=== PATIENT | female | born 1930 | race Caucasian/White ===

== ENCOUNTER 2016-10-22 10:43 | Observation (INO) | payer OTHER ==
[~2016-10-22] VITALS: Ht 162.6 cm; Wt 66.9 kg
[~2016-10-22 10:43] MED LIST: ACTONEL35 MG PO; ACTOS45 MG PO; AMLODIPINE BESYL5 MG PO; ASPIRIN81 M1 PO; Ambien PO; BUMEX1 MG PO; BUMEX2 MG PO; CALCIUM MAGNES1 EAC1 PO; CALCIUM WITH M1 EAC2 PO; CEFTIN250 MG PO; CENTRUM SILVER1 EAC3 PO; COUMADIN1 MG PO; COUMADIN2 MG PO; COUMADIN4 MG PO; Ceftin PO; DETROL LA4 MG PO; DIGOXIN PO; DIGOXIN125 MCG PO; DIGOXIN250 MCG PO; DITROPAN5 MG; DITROPAN5 MG PO; DUONEB3 ML IH; EXFORGE HCT 101 EAC2 PO; FOSAMAX70 MG PO; FUROSEMIDE40 MG PO; Feosol PO; GLUCOPHAGE1000 MG PO; ILOTYCIN1 GM BOTH EYES; JANUVIA100 MG PO; JANUVIA25 M1 PO; LASIX40 MG PO; LEVOTHYROXINE100 MCG PO; LEVOTHYROXINE125 MCG PO; LO-DOSE ASPIRIN81 M1 PO; LOPRESSOR12.5 MG PO; LOPRESSOR50 MG PO; Lanoxin,Digitek PO; METHYLPREDNISOL32 MG; METOPROLOL TART50 MG PO; MULTIPLE VITAM1 EAC3 PO; NITROSTAT,NITR0.4 M1; NITROSTAT0.4 MG SL; PIOGLITAZONE HC15 MG PO; SIMVASTATIN PO; SIMVASTATIN20 MG PO; Sodium Chloride PO; VITAMIN C500 M1 PO; ZOCOR20 MG PO
[2016-10-22 11:28] LABS: HEMATOCRIT 38.7 % (36.0-46.0); MCH 30.5 PG (29.0-34.0); MCHC 33.3 G/DL (30.0-36.0); MCV 91.5 FL (83-99); MEAN PLAT.VOLUME 10.2 uM^3 (9.5-12.4); PLATELET COUNT 139 K/uL (156-360); RBC DIS.WIDTH-CV 16.1 % (11.8-14.6); RBC DIS.WIDTH-SD 51.6 % (39-53); RED BLOOD COUNT 4.23 M/uL (3.80-5.20); WHITE BLOOD COUNT 6.3 K/uL (4.1-10.2)
[2016-10-22 11:41] LABS: BASOPHIL COUNT 0.1 K/uL (0-0.1); EOSINOPHIL COUNT 0.2 K/uL (0-0.3); IMMATURE GRANULOCYTE (%) 0.3 % (0.0-0.7); IMMATURE GRANULOCYTE COUNT 0.2 K/uL; LYMPHOCYTE COUNT 0.5 K/uL (1.0-2.8); MONOCYTE (%) 10.7 % (3-12); MONOCYTE COUNT 0.7 K/uL (0-0.8); NEUTROPHIL (%) 76.6 % (45-76); NEUTROPHIL COUNT 4.8 K/uL (1.8-6.4)
[2016-10-22 11:42] LABS: CHLORIDE 99 mEq/L (99-109); POTASSIUM 4.4 mEq/L (3.7-5.4); SODIUM 135 mEq/L (136-147)
[2016-10-22 11:44] LABS: D-DIMER ELISA 0.57 mg/L FEU (< 0.57); GLUCOSE 221 mg/dL (70-99)
[2016-10-22 11:45] LABS: ANION GAP 13 MEQ/L (2-14)
[2016-10-22 11:46] LABS: TOTAL BILIRUBIN 1.2 mg/dL (0.0-1.0)
[2016-10-22 11:48] LABS: ALKALINE PHOSPHATASE 100 IU/L (3-129); GFR ESTIMATE (CALCULATED) 19 mL/min/
[2016-10-22 11:49] LABS: UREA NITROGEN (BUN) 57 mg/dL (9-23)
[2016-10-22 11:53] LABS: TROP-I INTERPRETATION NEGATIVE; TROPONIN-I 0.02 ng/mL (0.0-0.30)
[2016-10-22] MEDS ORDERED: COUMADIN1 MG PO (13:19)
[2016-10-22] MEDS ORDERED: CRANBERRY TABL1 EACH PO (13:20)
[2016-10-22] MEDS ORDERED: TRADJENTA5 MG PO (13:20)
[2016-10-22] MEDS ORDERED: INVOKANA100 MG PO (13:20)
[2016-10-22] MEDS ORDERED: ASPIRIN325 MG PO (13:21)
[2016-10-22] MEDS ORDERED: NEOSPORIN + P28.3 GM TP (13:22)
[2016-10-22 15:56] LABS: PROTHROMBIN TIME 20.3 (9.2-11.2)
[2016-10-22 16:19] VITALS: BP 102/59
[2016-10-22 16:22] LABS: POINT-OF-CARE METER ID UU13113831
[2016-10-22 19:47] VITALS: BP 106/57
[2016-10-22 21:27] LABS: POINT-OF-CARE METER ID UU13113700
[2016-10-23 01:13] VITALS: BP 103/55
[2016-10-23 05:06] VITALS: BP 111/58
[2016-10-23 06:49] LABS: INTER. NORMALIZED RATIO 1.7; PROTHROMBIN TIME 18.1 (9.2-11.2)
[2016-10-23 06:56] LABS: ANION GAP 13 MEQ/L (2-14); CHLORIDE 98 MEQ/L (99-109); GFR ESTIMATE (CALCULATED) 21 mL/min/; GLUCOSE 161 mg/dL (70-99); POTASSIUM 4.1 MEQ/L (3.7-5.4); SAMPLE HEMOLYSIS CHECK 0; SAMPLE ICTERIC CHECK 0; SAMPLE LIPEMIA CHECK 0; SODIUM 135 MEQ/L (136-147); UREA NITROGEN (BUN) 59 mg/dL (9-23)
[2016-10-23 07:28] VITALS: BP 110/64
[2016-10-23 09:40] LABS: TROP-I INTERPRETATION NEGATIVE; TROPONIN-I 0.07 ng/mL (0.0-0.30)
[2016-10-23 12:27] VITALS: BP 110/55
[2016-10-23 12:32] LABS: POINT-OF-CARE METER ID UU14162513
[2016-10-23] MEDS ORDERED: KEFLEX250 MG PO (12:35)
== END 2016-10-23 15:36 | disposition home or self-care (01) ==
LOC: EME 10:43 → EDOF 14:03 → 5WEST 14:03 → EDOF 14:27 → 5WEST 15:49
PROVIDERS: Emergency Medicine; Hospitalist; Internal Medicine; Physician Assistant Medical
DX: R07.9 Chest pain, unspecified (principal); R06.02 Shortness of breath; L03.116 Cellulitis of left lower limb; I25.5 Ischemic cardiomyopathy; I25.10 Atherosclerotic heart disease of native coronary artery without angina pectoris; Z95.1 Presence of aortocoronary bypass graft; I48.1 Persistent atrial fibrillation; I12.9 Hypertensive chronic kidney disease with stage 1 through stage 4 chronic kidney disease, or unspecified chronic kidney disease; E78.5 Hyperlipidemia, unspecified; Z79.01 Long term (current) use of anticoagulants; Z79.899 Other long term (current) drug therapy; E11.22 Type 2 diabetes mellitus with diabetic chronic kidney disease; I35.0 Nonrheumatic aortic (valve) stenosis; N18.9 Chronic kidney disease, unspecified
CPT/HCPCS: 71010; 73502; 80048; 80053; 82948; 83880; 84484; 85025; 85379; 85610; 93005; 93971; 99281; 99285; G0378; J1815; J1940

== ENCOUNTER 2016-12-07 22:42 | Emergency (ER) | payer OTHER ==
[~2016-12-07] VITALS: Ht 162.6 cm; Wt 68.0 kg
[~2016-12-07 22:42] MED LIST changes: +ASPIRIN325 MG PO; +CRANBERRY TABL1 EACH PO; +INVOKANA100 MG PO; +KEFLEX250 MG PO; +NEOSPORIN + P28.3 GM TP; +TRADJENTA5 MG PO
[2016-12-08] MEDS ORDERED: LEVO-T125 MCG PO (01:18)
[2016-12-08] MEDS ORDERED: NITROSTAT0.4 MG SL (01:19)
[2016-12-08] MEDS ORDERED: KEFLEX250 MG PO (01:19)
[2016-12-08] MEDS ORDERED: ZOCOR20 MG PO (01:19)
[2016-12-08] MEDS ORDERED: CENTRUM SILVER1 EAC3 PO (01:19)
[2016-12-08] MEDS ORDERED: BUMEX2 MG PO (01:20)
[2016-12-08] MEDS ORDERED: LOPRESSOR50 MG PO (01:20)
[2016-12-08] MEDS ORDERED: C COMPLEX500 MG PO (01:20)
[2016-12-08] MEDS ORDERED: COUMADIN1 MG PO (01:20)
[2016-12-08] MEDS ORDERED: INVOKANA100 MG PO (01:20)
[2016-12-08] MEDS ORDERED: TRADJENTA5 MG PO (01:21)
[2016-12-08] MEDS ORDERED: CRANBERRY TABL1 EACH PO (01:21)
[2016-12-08] MEDS ORDERED: SANTYL30 GM TP (01:24)
[2016-12-08 01:48] VITALS: BP 124/80
== END 2016-12-08 01:53 | disposition home or self-care (01) ==
LOC: EME 22:42
DX: L97.829 Non-pressure chronic ulcer of other part of left lower leg with unspecified severity (principal); M79.672 Pain in left foot; E11.9 Type 2 diabetes mellitus without complications; I10 Essential (primary) hypertension; I48.91 Unspecified atrial fibrillation; Z79.01 Long term (current) use of anticoagulants; Z79.82 Long term (current) use of aspirin; Z95.1 Presence of aortocoronary bypass graft; Z95.5 Presence of coronary angioplasty implant and graft
CPT/HCPCS: 99281; 99284

== ENCOUNTER 2018-01-11 16:28 | Emergency (ER) | payer OTHER ==
[~2018-01-11] VITALS: Ht 162.6 cm; Wt 65.0 kg
[~2018-01-11 16:28] MED LIST changes: +C COMPLEX500 MG PO; +LEVO-T125 MCG PO; +SANTYL30 GM TP
[2018-01-11 17:13] LABS: HEMATOCRIT 40.4 % (36.0-46.0); HEMOGLOBIN 13.5 G/DL (11.9-15.5); MCH 30.5 PG (29.0-34.0); MCHC 33.4 G/DL (30.0-36.0); MCV 91.4 FL (83-99); PLATELET COUNT 145 K/uL (156-360); RBC DIS.WIDTH-CV 15.2 % (11.8-14.6); RBC DIS.WIDTH-SD 50.5 % (39-53); RED BLOOD COUNT 4.42 M/uL (3.80-5.20); WHITE BLOOD COUNT 5.8 K/uL (4.1-10.2)
[2018-01-11 17:22] LABS: CHLORIDE 94 mEq/L (99-109); POTASSIUM 4.9 mEq/L (3.7-5.4); SODIUM 135 mEq/L (136-147)
[2018-01-11 17:23] LABS: GLUCOSE 211 mg/dL (70-99)
[2018-01-11 17:27] LABS: CREATININE 2.2 mg/dL (0.6-1.3); GFR ESTIMATE (CALCULATED) 22 mL/min/
[2018-01-11 17:28] LABS: UREA NITROGEN (BUN) 63 mg/dL (9-23)
[2018-01-11] MEDS ORDERED: KEFLEX500 MG PO (20:05)
[2018-01-11] MEDS ORDERED: BACTRIM,SEPT1 TABLET PO (20:05)
[2018-01-11] MEDS ORDERED: LORTAB 5-325 M1 EACH PO (20:05)
[2018-01-11 20:36] VITALS: BP 126/75
== END 2018-01-11 20:36 | disposition home or self-care (01) ==
LOC: EME 16:28
DX: E11.622 Type 2 diabetes mellitus with other skin ulcer (principal); L97.919 Non-pressure chronic ulcer of unspecified part of right lower leg with unspecified severity; Z79.84 Long term (current) use of oral hypoglycemic drugs; L03.115 Cellulitis of right lower limb; M79.604 Pain in right leg; K59.00 Constipation, unspecified; R06.02 Shortness of breath; I51.7 Cardiomegaly; I48.91 Unspecified atrial fibrillation; I45.10 Unspecified right bundle-branch block; Z79.01 Long term (current) use of anticoagulants; I10 Essential (primary) hypertension; I50.9 Heart failure, unspecified; J44.9 Chronic obstructive pulmonary disease, unspecified; Z95.1 Presence of aortocoronary bypass graft; Z85.9 Personal history of malignant neoplasm, unspecified; Z87.442 Personal history of urinary calculi; Z90.49 Acquired absence of other specified parts of digestive tract; Z91.041 Radiographic dye allergy status
CPT/HCPCS: 71046; 74018; 80048; 82948; 85027; 93005; 99281; 99284

== ENCOUNTER 2018-03-22 12:17 | Inpatient (IN) | payer OTHER ==
[~2018-03-22] VITALS: Ht 154.9 cm; Wt 64.7 kg
[~2018-03-22 12:17] MED LIST changes: +BACTRIM,SEPT1 TABLET PO; -C COMPLEX500 MG PO; +ESTER-C 1,0001 EACH PO; +KEFLEX500 MG PO; +LORTAB 5-325 M1 EACH PO
[2018-03-22 13:25] LABS: BASOPHIL (%) 0.5 % (0-1); EOSINOPHIL (%) 1.3 % (0-5); EOSINOPHIL COUNT 0.1 K/uL (0-0.3); HEMATOCRIT 38.2 % (36.0-46.0); HEMOGLOBIN 12.6 G/DL (11.9-15.5); LYMPHOCYTE (%) 7.3 % (15-42); LYMPHOCYTE COUNT 0.6 K/uL (1.0-2.8); MCH 30.1 PG (29.0-34.0); MCV 91.2 FL (83-99); MONOCYTE (%) 11.5 % (3-12); MONOCYTE COUNT 0.9 K/uL (0-0.8); NEUTROPHIL (%) 78.4 % (45-76); NEUTROPHIL COUNT 6.1 K/uL (1.8-6.4); PLATELET COUNT 207 K/uL (156-360); RBC DIS.WIDTH-CV 17.1 % (11.8-14.6); RBC DIS.WIDTH-SD 56.5 % (39-53); RED BLOOD COUNT 4.19 M/uL (3.80-5.20); WHITE BLOOD COUNT 7.8 K/uL (4.1-10.2)
[2018-03-22 13:38] LABS: CHLORIDE 90 mEq/L (99-109); POTASSIUM 4.9 mEq/L (3.7-5.4); SODIUM 127 mEq/L (136-147)
[2018-03-22 13:39] LABS: GLUCOSE 225 mg/dL (70-99); INTER. NORMALIZED RATIO 1.9
[2018-03-22 13:42] LABS: PTT 31.8 SEC (25-37)
[2018-03-22 13:43] LABS: CREATININE 2.3 mg/dL (0.6-1.3); GFR ESTIMATE (CALCULATED) 21 mL/min/
[2018-03-22 13:44] LABS: UREA NITROGEN (BUN) 67 mg/dL (9-23)
[2018-03-22 13:48] LABS: TROP-I INTERPRETATION NEGATIVE; TROPONIN-I 0.03 ng/mL (0.0-0.30)
[2018-03-22] MEDS ORDERED: SARNA222 ML TP (17:45)
[2018-03-22] MEDS ORDERED: PIOGLITAZONE HC45 MG PO (17:45)
[2018-03-22] MEDS ORDERED: HYDROCODON-ACE1 EAC8 PO (17:47)
[2018-03-22 21:10] LABS: THYROTROPIN (TSH) 13.6 MIU/L (0.4-5.5)
[2018-03-22 21:55] VITALS: BP 113/64
[2018-03-23 04:02] VITALS: BP 118/59
[2018-03-23 05:24] LABS: BASOPHIL (%) 0.5 % (0-1); EOSINOPHIL (%) 0.5 % (0-5); HEMATOCRIT 35.4 % (36.0-46.0); HEMOGLOBIN 11.3 G/DL (11.9-15.5); IMMATURE GRANULOCYTE (%) 0.6 % (0.0-0.7); LYMPHOCYTE (%) 6.2 % (15-42); LYMPHOCYTE COUNT 0.5 K/uL (1.0-2.8); MCHC 31.9 G/DL (30.0-36.0); MCV 90.8 FL (83-99); MONOCYTE (%) 13.7 % (3-12); MONOCYTE COUNT 1.2 K/uL (0-0.8); NEUTROPHIL (%) 78.5 % (45-76); NEUTROPHIL COUNT 6.6 K/uL (1.8-6.4); PLATELET COUNT 182 K/uL (156-360); RBC DIS.WIDTH-SD 55.9 % (39-53); WHITE BLOOD COUNT 8.4 K/uL (4.1-10.2)
[2018-03-23 05:47] LABS: ALBUMIN 3.4 G/DL (3.2-4.8); ALKALINE PHOSPHATASE 142 IU/L (3-129); ALT (GPT) 11 IU/L (3-49); AST (GOT) 18 IU/L (2-34); CHLORIDE 93 MEQ/L (99-109); CREATININE 2.1 MG/DL (0.6-1.3); GFR ESTIMATE (CALCULATED) 24 mL/min/; POTASSIUM 4.6 MEQ/L (3.7-5.4); SODIUM 132 MEQ/L (136-147); TOTAL PROTEIN 6.8 G/DL (6.4-8.3); UREA NITROGEN (BUN) 67 mg/dL (9-23)
[2018-03-23 06:00] LABS: GLUCOSE 106 mg/dL (70-99)
[2018-03-23 07:45] VITALS: BP 123/66
[2018-03-23 10:38] LABS: HEMOGLOBIN A1c (GLYCOHEMOGLOB) 10.5 % (Below 5.7)
[2018-03-23 12:00] VITALS: BP 117/58
[2018-03-23 17:34] LABS: APPEARANCE CLOUDY ((CLEAR)); BILIRUBIN NEGATIVE; BLOOD NEGATIVE; COLOR YELLOW ((YELLOW)); GLUCOSE (STRIP) NEGATIVE; KETONES NEGATIVE; LEUKOCYTES LARGE; NITRITE NEGATIVE; PROTEIN (STRIP) NEGATIVE; SPECIFIC GRAVITY 1.009 (1.000-1.030); UROBILINOGEN 0.2 MG/DL (0.2-1.0)
[2018-03-23 17:40] LABS: BACTERIA RARE /HPF; EPITHELIAL CELLS 1+ /HPF; HYALINE CASTS 0-5 /LPF; MUCUS TRACE /LPF; RED BLOOD CELLS 0-5 /HPF (0-5); WHITE BLOOD CELLS 15-20 /HPF (0-5)
[2018-03-23 19:36] VITALS: BP 107/59
[2018-03-23 21:44] VITALS: BP 108/59
[2018-03-24 00:06] VITALS: BP 108/60
[2018-03-24 03:30] VITALS: BP 119/57
[2018-03-24 07:04] LABS: BASOPHIL (%) 0.3 % (0-1); EOSINOPHIL (%) 1.1 % (0-5); EOSINOPHIL COUNT 0.1 K/uL (0-0.3); HEMATOCRIT 34.9 % (36.0-46.0); HEMOGLOBIN 11.3 G/DL (11.9-15.5); IMMATURE GRANULOCYTE (%) 0.7 % (0.0-0.7); LYMPHOCYTE (%) 5.6 % (15-42); LYMPHOCYTE COUNT 0.5 K/uL (1.0-2.8); MCH 29.2 PG (29.0-34.0); MCHC 32.4 G/DL (30.0-36.0); MCV 90.2 FL (83-99); MONOCYTE (%) 9.7 % (3-12); MONOCYTE COUNT 0.9 K/uL (0-0.8); NEUTROPHIL (%) 82.6 % (45-76); NEUTROPHIL COUNT 7.6 K/uL (1.8-6.4); PLATELET COUNT 183 K/uL (156-360); RBC DIS.WIDTH-CV 17.2 % (11.8-14.6); RED BLOOD COUNT 3.87 M/uL (3.80-5.20); WHITE BLOOD COUNT 9.1 K/uL (4.1-10.2)
[2018-03-24 07:12] VITALS: BP 108/79
[2018-03-24 07:30] LABS: CHLORIDE 94 MEQ/L (99-109); CREATININE 1.9 MG/DL (0.6-1.3); GFR ESTIMATE (CALCULATED) 27 mL/min/; GLUCOSE 134 mg/dL (70-99); MAGNESIUM 2.1 mg/dl (1.3-2.7); POTASSIUM 4.1 MEQ/L (3.7-5.4); SODIUM 133 MEQ/L (136-147); UREA NITROGEN (BUN) 63 mg/dL (9-23)
[2018-03-24 10:56] VITALS: BP 115/58
[2018-03-24 16:58] VITALS: BP 115/58
[2018-03-24 19:38] VITALS: BP 112/59
[2018-03-25] VITALS (7 sets, daily range): BP systolic 117–131; BP diastolic 58–60
[2018-03-25 06:34] LABS: INTER. NORMALIZED RATIO 1.9
[2018-03-25 19:22] LABS: BASOPHIL (%) 0.6 % (0-1); BASOPHIL COUNT 0.1 K/uL (0-0.1); EOSINOPHIL (%) 1.3 % (0-5); EOSINOPHIL COUNT 0.1 K/uL (0-0.3); HEMATOCRIT 33.4 % (36.0-46.0); HEMOGLOBIN 10.7 G/DL (11.9-15.5); IMMATURE GRANULOCYTE (%) 0.5 % (0.0-0.7); LYMPHOCYTE (%) 5.4 % (15-42); LYMPHOCYTE COUNT 0.5 K/uL (1.0-2.8); MCH 29.2 PG (29.0-34.0); MCV 91.3 FL (83-99); MONOCYTE COUNT 0.8 K/uL (0-0.8); NEUTROPHIL (%) 83.2 % (45-76); NEUTROPHIL COUNT 7.3 K/uL (1.8-6.4); PLATELET COUNT 204 K/uL (156-360); RBC DIS.WIDTH-CV 17.1 % (11.8-14.6); RBC DIS.WIDTH-SD 57.1 % (39-53); RED BLOOD COUNT 3.66 M/uL (3.80-5.20); WHITE BLOOD COUNT 8.7 K/uL (4.1-10.2)
[2018-03-25 19:23] LABS: CHLORIDE 95 MEQ/L (99-109); CREATININE 1.6 MG/DL (0.6-1.3); GFR ESTIMATE (CALCULATED) 32 mL/min/; GLUCOSE 139 mg/dL (70-99); POTASSIUM 4.2 MEQ/L (3.7-5.4); SODIUM 134 MEQ/L (136-147); UREA NITROGEN (BUN) 51 mg/dL (9-23)
[2018-03-26 00:50] VITALS: BP 110/58
[2018-03-26 03:55] VITALS: BP 118/62
[2018-03-26 06:52] LABS: BASOPHIL (%) 0.5 % (0-1); BASOPHIL COUNT 0.1 K/uL (0-0.1); EOSINOPHIL (%) 0.7 % (0-5); EOSINOPHIL COUNT 0.1 K/uL (0-0.3); HEMOGLOBIN 11.2 G/DL (11.9-15.5); IMMATURE GRANULOCYTE (%) 0.6 % (0.0-0.7); LYMPHOCYTE (%) 5.9 % (15-42); LYMPHOCYTE COUNT 0.6 K/uL (1.0-2.8); MCH 29.6 PG (29.0-34.0); MCV 92.3 FL (83-99); MONOCYTE (%) 8.5 % (3-12); MONOCYTE COUNT 0.9 K/uL (0-0.8); NEUTROPHIL (%) 83.8 % (45-76); NEUTROPHIL COUNT 8.5 K/uL (1.8-6.4); PLATELET COUNT 220 K/uL (156-360); RBC DIS.WIDTH-SD 56.3 % (39-53); RED BLOOD COUNT 3.79 M/uL (3.80-5.20); WHITE BLOOD COUNT 10.1 K/uL (4.1-10.2)
[2018-03-26 06:57] LABS: INTER. NORMALIZED RATIO 1.8
[2018-03-26 07:17] LABS: ALBUMIN 3.6 G/DL (3.2-4.8); ALKALINE PHOSPHATASE 130 IU/L (3-129); ALT (GPT) 9 IU/L (3-49); AST (GOT) 20 IU/L (2-34); CHLORIDE 98 MEQ/L (99-109); CREATININE 1.6 MG/DL (0.6-1.3); GFR ESTIMATE (CALCULATED) 32 mL/min/; POTASSIUM 3.8 MEQ/L (3.7-5.4); SODIUM 140 MEQ/L (136-147); TOTAL BILIRUBIN 1.1 MG/DL (0.0-1.0); UREA NITROGEN (BUN) 46 mg/dL (9-23)
[2018-03-26 07:18] LABS: GLUCOSE 66 mg/dL (70-99)
[2018-03-26 08:47] VITALS: BP 123/73
[2018-03-26 15:57] VITALS: BP 111/57
[2018-03-26 21:00] VITALS: BP 125/78
[2018-03-27 00:47] VITALS: BP 129/61
[2018-03-27 04:16] VITALS: BP 124/62
[2018-03-27 05:53] LABS: BASOPHIL (%) 0.9 % (0-1); BASOPHIL COUNT 0.1 K/uL (0-0.1); EOSINOPHIL (%) 2.4 % (0-5); EOSINOPHIL COUNT 0.2 K/uL (0-0.3); HEMATOCRIT 32.7 % (36.0-46.0); HEMOGLOBIN 10.4 G/DL (11.9-15.5); IMMATURE GRANULOCYTE (%) 0.6 % (0.0-0.7); LYMPHOCYTE (%) 5.9 % (15-42); LYMPHOCYTE COUNT 0.4 K/uL (1.0-2.8); MCH 29.8 PG (29.0-34.0); MCHC 31.8 G/DL (30.0-36.0); MCV 93.7 FL (83-99); MONOCYTE (%) 10.4 % (3-12); MONOCYTE COUNT 0.7 K/uL (0-0.8); NEUTROPHIL (%) 79.8 % (45-76); NEUTROPHIL COUNT 5.4 K/uL (1.8-6.4); PLATELET COUNT 171 K/uL (156-360); RBC DIS.WIDTH-CV 16.9 % (11.8-14.6); RBC DIS.WIDTH-SD 57.7 % (39-53); RED BLOOD COUNT 3.49 M/uL (3.80-5.20); WHITE BLOOD COUNT 6.8 K/uL (4.1-10.2)
[2018-03-27 06:04] LABS: INTER. NORMALIZED RATIO 1.9
[2018-03-27 06:22] LABS: ALBUMIN 3.2 G/DL (3.2-4.8); ALKALINE PHOSPHATASE 115 IU/L (3-129); ALT (GPT) 8 IU/L (3-49); AST (GOT) 18 IU/L (2-34); CHLORIDE 98 MEQ/L (99-109); CREATININE 1.5 MG/DL (0.6-1.3); GFR ESTIMATE (CALCULATED) 35 mL/min/; POTASSIUM 4.3 MEQ/L (3.7-5.4); SODIUM 138 MEQ/L (136-147); TOTAL BILIRUBIN 1.2 MG/DL (0.0-1.0); TOTAL PROTEIN 6.2 G/DL (6.4-8.3); UREA NITROGEN (BUN) 44 mg/dL (9-23)
[2018-03-27 06:30] LABS: GLUCOSE 164 mg/dL (70-99)
[2018-03-27 08:01] VITALS: BP 144/65
[2018-03-27 12:01] VITALS: BP 115/78
[2018-03-27] MEDS ORDERED: PIOGLITAZONE HC30 MG PO (13:29)
[2018-03-27] MEDS ORDERED: DIGOXIN125 MCG PO (13:29)
[2018-03-27 15:37] VITALS: BP 137/60
== END 2018-03-27 16:40 | DRG 291 ==
LOC: EME 12:17 → 2EAST 18:00 → EDOF 18:00 → ENRESERV 20:11 → 2EAST 21:42
PROVIDERS: Emergency Medicine; Family Medicine; Internal Medicine Nephrology
DX: I13.0 Hypertensive heart and chronic kidney disease with heart failure and stage 1 through stage 4 chronic kidney disease, or unspecified chronic kidney disease (principal); I50.33 Acute on chronic diastolic (congestive) heart failure; E87.1 Hypo-osmolality and hyponatremia; E11.22 Type 2 diabetes mellitus with diabetic chronic kidney disease; N18.4 Chronic kidney disease, stage 4 (severe); S72.111A Displaced fracture of greater trochanter of right femur, initial encounter for closed fracture; W06.XXXA Fall from bed, initial encounter; I87.8 Other specified disorders of veins; L97.911 Non-pressure chronic ulcer of unspecified part of right lower leg limited to breakdown of skin; N17.9 Acute kidney failure, unspecified; I42.9 Cardiomyopathy, unspecified; R33.9 Retention of urine, unspecified; N32.81 Overactive bladder; E11.65 Type 2 diabetes mellitus with hyperglycemia; E03.9 Hypothyroidism, unspecified; I48.2 Chronic atrial fibrillation; J44.9 Chronic obstructive pulmonary disease, unspecified; R09.02 Hypoxemia; I25.10 Atherosclerotic heart disease of native coronary artery without angina pectoris; E78.00 Pure hypercholesterolemia, unspecified; E78.5 Hyperlipidemia, unspecified; R51 Headache; Z79.01 Long term (current) use of anticoagulants; Z95.1 Presence of aortocoronary bypass graft
CPT/HCPCS: 70450; 71045; 73502; 74176; 76770; 80048; 80053; 81003; 82948; 83036; 83735; 83880; 84244 90; 84443; 84484; 84550; 85025; 85610; 85730; 87077; 87086; 87186; 93005; 94799; 99281; 99285; A6212; J0690; J1160; J1815; J7050